=== PATIENT | male | born 1960 | race Caucasian/White ===

== ENCOUNTER 2023-07-09 22:14 | Inpatient (IN) | payer OTHER, SELFPAY ==
[2023-07-09 19:10] VITALS: BP 125/73
--- NOTE | 2023-07-09 19:49 | ED.GENMED ---
History of Present Illness
General
Chief Complaint: Abnormal Lab Value
Source: patient
Exam Limitations: none
Time Seen by Provider: 07/09/23 19:29
Travel History
Have you had any contact with someone who has COVID-19?: No
Do you have any symptoms of coronavirus? Fever > 100 degrees, chills, cough, shortness of breath, sore throat, loss of taste or smell, muscle aches, or headache?: No
History of Present Illness
History of Present Illness:
This is a 62 year old male that comes in with c/o fever. States that he recently had an infection and was place on an antibiotic by Dr. Myers. States that he doesn't remember what the antibiotic was or what it was for. States that the night he was
given the antibiotic he had a fever and was very confused. States that he took this for 6 days and then was to have blood work and US. Statss that h had the blood work and his PCP called him and said that his Cr was 2.5. States that this was 2 weeks
ago. States that he was feeling better. Then yesterday he started to feel dizzy when he would stand up and felt like he was going to fall. States that he was also cold and he had a fever. States that his urine was dark. States that he has had
diarrhea, headache yesterday and today and the loopiness. Denies any chills, chest pain, SOB, abd pain, nausea, vomiting, urinary burning.
Past History
Past History
ED Past Medical History: Arrthythmia (Atrial fib), HTN, Renal failure (with Kidney Transplant 2014, Never had dialysis) and Other (Kidney disease)
ED Past Surgical History: Cardiac (blation), Orthopedic (Left ankle surgery X 2, Jaw surgery) and Other (kidney transplant)
Social History
Tobacco: Non-smoker
Alcohol: Occasional
Personal:
Living: with family
Review of Systems
Review of Systems
All Other Systems: ROS reviewed and negative except as documented in HPI and ROS
Constitutional: Reports fever; Denies chills
EENT: Reports no symptoms
Respiratory: Reports no symptoms; Denies cough or trouble breathing
Cardiac: Denies chest pain
ABD/GI: Reports diarrhea; Denies abdominal pain, nausea or vomiting
: Reports no symptoms; Denies dysuria, frequency or urgency
Musculoskeletal: Reports no symptoms
Skin: Reports no symptoms
Neurological: Reports dizzy and headache
Psychiatric: Reports no symptoms
Phy Exam
General Physical Exam
General Presentation: no apparent distress
General age: appears stated age
General Skin: warm and dry
General Habitus: normal
General Mental: alert
General Hydration: dry mucous membranes
ENT Exam
ENT Exam: TM's normal, pharynx normal and neck supple
Eye Exam
Eye Exam: EOMI
Cardiovascular Exam
Cardiovascular Exam: regular rate/rhythm, no murmur and normal peripheral pulses
Pulmonary Exam
Pulmonary Exam: lungs clear, no respiratory distress, no rales, chest non tender, no crackles, no rhonchi, no wheezing and no cough
Gastrointestinal Exam
Gastrointestinal Exam: normal bowel sounds, non tender, soft, no organomegaly, no pulsatile mass and non distended
Musculoskeletal Exam
Musculoskeletal Exam: full ROM and edema (Trace lower leg edema)
Skin Exam
Skin Exam: normal color, warm/dry, no rash and no petechia
Psychiatric Exam
Psychiatric Exam: normal mood/affect
Course
Orders/Labs/Results
Orders:
Orders
07/09/23 19:48
0.9% Sodium Chloride 1000 ml [Nss] 1,000 ml IV BOLUS
Acetaminophen [Tylenol] 1,000 mg PO NOW STA
07/09/23 19:59
Complete Blood Count/With Diff Urgent
Comprehensive Metabolic Panel Urgent
Lactic Acid Q4H
Comment: CANCEL 2nd LACTIC ACID IF 1st LACTIC ACID IS LESS THAN 2
Blood Culture Q30M
WING Source: Blood/Venous
Specimen Description:
Blood Culture Q30M
WING Source: Blood/Venous
Specimen Description:
07/09/23 20:06
Urinalysis Reflex To Culture Urgent
Date Specimen was Collected: 07/09/23
Time Specimen was Collected: 19:52
Urine Microscopic Reflex Cult Urgent
Urine Culture Urgent
WING Source: U
Specimen Description:
Date Specimen was Collected: 07/09/23
Time Specimen was Collected: 19:52
07/09/23 21:06
CefTRIAXone [Rocephin] 1,000 mg IV NOW STA
07/10/23 00:00
Lactic Acid Q4H
Comment: CANCEL 2nd LACTIC ACID IF 1st LACTIC ACID IS LESS THAN 2
Abnormal Lab Results
07/09/23 07/09/23
19:59 20:06
RBC 3.94 L 10^6/uL
(4.70-6.10)
Hgb 11.7 L g/dL
(13.0-18.0)
Hct 34.0 L %
(39.0-52.0)
RDW 14.6 H %
(11.5-14.5)
MPV 11.1 H fL
(7.4-10.4)
Absolute Neuts (auto) 8.4 H 10^3/uL
(1.4-6.5)
Absolute Lymphs (auto) 0.7 L 10^3/uL
(1.2-3.4)
Absolute Monos (auto) 1.4 H 10^3/uL
(0.1-0.6)
Neutrophils % 79.5 H %
(42.2-75.2)
Lymphocytes % 6.4 L %
(20.5-51.1)
Monocytes % 13.4 H %
(1.7-9.3)
Sodium 132 L mmol/L
(135-145)
Carbon Dioxide 20 L mmol/L
(22-30)
BUN 42 H mg/dl
(9-20)
Creatinine 2.5 H mg/dL
(0.7-1.3)
Glucose 114 H mg/dl
(70-99)
Urine Ketones Trace A
(Negative)
Ur Occult Blood Reflex 2+ A
(Negative)
Urine Nitrite (Reflex) Positive A
(Negative)
Urine Bilirubin 1+ A
(Negative)
Leukocyte Esterase Rfl 2+ A
(Negative)
Urine RBC 7-10 A /HPF
(0-2)
Urine WBC (Reflex) 60-70 A /HPF
(0-5)
Urine Bacteria (Reflex) Many A
(Negative)
07/09/23 19:59
07/09/23 19:59
H/H slightly low. Sodium slightly low. Carbon dioxide low. Acute renal failure, GLucose nonfasting. Dodson positive for infection. Lactic acid normal at 0.8
Vital Signs
Initial and Last Documented VS:
Initial Vital Signs
Temp Pulse Resp BP Pulse Ox
99.3 F 96 20 125/73 98
07/09/23 19:10 07/09/23 19:10 07/09/23 19:10 07/09/23 19:10 07/09/23 19:10
Last Documented Vital Signs
Temp Pulse Resp BP Pulse Ox
99.3 F 92 16 128/76 97
07/09/23 19:10 07/09/23 20:15 07/09/23 20:15 07/09/23 20:06 07/09/23 20:15
MDM/Problems Addressed
Differential Diagnosis Includes:
Renal failure, UTI,
MDM/Problems Addressed:
This is a 62 year old male that comes in with c/o fever and dizziness. States that he started yesterday with dizziness when he would stand up. State that his urine is dark. Patient was an antibiotic a few weeks ago for 6 days. Had Repeat labs and
told that his Cr was 2.5, Patient was feeling good and thought he had a handle on it.
Will get labs, Urine, IV fluids and medicate for his fever
Back into see patient. Explained that he has a Urinary tract infection and he is in renal failure. WIll admit for IV antibiotics. Hospitalist notified.
Chronic conditions affecting care:
Kidney transplant
Acute Exacerbation and/or Progression of Chronic Illness:
UTI, Kidney transplant
*Pulse Oximetry
Patient hypoxic: no
*EKG
Interpreted by ED Provider?: NA
Rate: EKG- N/A
*Critical Care Note
Total Time (30-74mins, 75-104mins- exclusive of procedures): Not Applicable
ED Attending Note
-
Portions of this chart may have been created with voice recognition software.� Occasional wrong word or��sound alike� substitutions may have occurred due to the inherent limitations of voice recognition software.
Discharge Plan
Departure
Patient Disposition: Admit
Date of Disposition: 07/09/23
Time of Disposition: 21:14
Admit to: Med/Surg
Presentation/result/management discussed w/ accepting MD/DO: Hospitalist
Patient with high blood pressure during this ER visit?: No
Condition: Good
Covid-19: Not Applicable
Discharge Problem:
Urinary tract infection, Acute renal failure
Prescriptions:
No Action
tacrolimus 1 MG capsule
1 mg PO BID
Patient Comments:
10/20/2021: TAKEN W/ 0.5MG = 1.5MG
tacrolimus 0.5 MG capsule
0.5 mg PO BID
mycophenolate sodium 180 MG tablet,delayed release (DR/EC)
540 mg PO BID
labetalol 200 MG tablet
400 mg PO BID Qty: 360 0RF
Xarelto 20 MG tablet
20 mg PO QPM Qty: 90 0RF
furosemide [Lasix] 20 MG tablet
40 mg PO DAILY
pantoprazole [pantoprazole] 40 mg tablet,delayed release (DR/EC)
40 mg PO DAILY Qty: 14 0RF
Referrals:
Leeanna Horn MD [Family Provider] -
Interventions
Interventions:
*Risk Screen - Suicide Last Done: 07/09/23 19:10
*General Assessment Last Done: 07/09/23 19:10
*Neglect/Abuse Screening Last Done: 07/09/23 19:10
ED- Fall Risk Assessment Last Done: 07/09/23 20:08
*ED COVID-19 Vaccine History Last Done: 07/09/23 20:08
[2023-07-09] MEDS: TYLENOL 1000 MG PO (20:01)
[2023-07-09] MEDS: NSS 1000 IV ×2 (20:03→23:36)
[2023-07-09 20:05] LABS: % Basophils 0.2 % (0-2); % Eosinophils 0.1 % (0-6); % Immature Granulocytes 0.4 % (0-0.5); % Lymphocytes 6.4 % (20.5-51.1); % Monocytes 13.4 % (1.7-9.3); % Neutrophils 79.5 % (42.2-75.2); Absolute Lymphocytes 0.7 10^3/uL (1.2-3.4); Absolute Monocytes 1.4 10^3/uL (0.1-0.6); Absolute Neutrophils 8.4 10^3/uL (1.4-6.5); Hemoglobin 11.7 g/dL (13.0-18.0); Mean Corp Hgb Conc. 34.4 g/dL (33.0-37.0); Mean Corpuscular Hgb 29.7 pg (27.0-31.0); Mean Corpuscular Volume 86.3 fL (80.0-94.0); Mean Platelet Volume 11.1 fL (7.4-10.4); Nucleated Red Blood Cells % 0 % (-); Platelet Count 178 10^3/uL (130-400); Red Blood Cell Count 3.94 10^6/uL (4.70-6.10); Red Cell Dist. Width 14.6 % (11.5-14.5); White Blood Cell Count 10.6 10^3/uL (4.8-10.8)
[2023-07-09 20:06] VITALS: BP 128/76
[2023-07-09 20:08] VITALS: BMI 25.8
[2023-07-09 20:17] LABS: Lactic Acid 0.8 mmol/L (0.7-2.0)
[2023-07-09 20:21] LABS: Urine Albumin Trace (Neg - Trace); Urine Bilirubin 1+ (Negative); Urine Character Slightly Cloudy (Clear); Urine Color Yellow; Urine Glucose Negative (Negative); Urine Ketone Trace (Negative); Urine Leukocyte 2+ (Negative); Urine Nitrite Positive (Negative); Urine Occult Blood 2+ (Negative); Urine Specific Gravity 1.015 (<1.030); Urine Urobilinogen 1+ (Neg - 1+)
[2023-07-09 20:55] LABS: Urine White Cell 60-70 /HPF (0-5)
[2023-07-09 20:56] LABS: Urine Bacteria Many (Negative)
[2023-07-09 21:00] VITALS: BP 112/61
[2023-07-09 21:04] LABS: ALT (SGPT) 18 U/L (0-50); AST (SGOT) 21 U/L (17-59); Albumin 3.9 g/dl (3.5-5.0); Alkaline Phosphatase 97 U/L (38-126); Blood Urea Nitrogen 42 mg/dl (9-20); Calcium 8.9 mg/dl (8.4-10.2); Carbon Dioxide 20 mmol/L (22-30); Chloride 98 mmol/L (98-107); Estimated Creatinine Clearance 40 ml/min; Glucose 114 mg/dl (70-99); Potassium 3.9 mmol/L (3.5-5.1); Sodium 132 mmol/L (135-145); Total Protein 6.5 g/dl (6.3-8.2); eGFR 28.16
[2023-07-09] MEDS: ROCEPHIN 1000 MG IV (21:13)
[2023-07-09 21:15] LABS: Total Bilirubin 3.2 mg/dl (0.2-1.3)
--- NOTE | 2023-07-09 21:15 | HPS.HSE ---
Addendum entered and electronically signed by Hong Moore MD 07/09/23 21:51:
Hyponatremia, mild, trend Na with IVFs
Allergies
Allergy/AdvReac Type Severity Reaction Status Date / Time
amoxicillin Allergy unsure Verified 07/09/23 19:10
latex Allergy unsure Verified 07/09/23 19:10
Home Medications
Source: Pt using pics of medication bottles on his phone
mycophenolate sodium 180 mg tablet,delayed release 540 mg PO BID Transplant
tacrolimus 1.5mg PO QAM and 1mg PO QPM
labetalol 200 mg tablet 400 mg PO BID
rivaroxaban 20 mg tablet (Xarelto) 20 mg PO QPM
furosemide 20 mg tablet (Lasix) 40 mg PO Q48H
pantoprazole 40 mg tablet,delayed release 40 mg PO DAILY
Original Note:
Family Physician
-
Family Physician: Leeanna Horn MD
Chief Complaint
-
Elevated creatinine, fever, lightheadedness
History of Present Illness
62 y/o M with PMHx
Essential hypertension
Paroxysmal Afib
h/o renal transplant due to polycystic kidney disease in 2014
HFpEF
Who presents with chief complaint of elevated creatinine, fever, lightheadedness. Patient was on an antibiotic for 6 days starting June 2023. He does not recall which antibiotic it was. This was for urinary tract infection. Yesterday evening
the patient felt lightheaded and had a headache. Today, he went to the house of Dr. Raiza Cortez and was found to have a fever of 104 �F and was orthostatic. He also already had the knowledge that his creatinine was elevated from baseline at 2.5.
Dr. Myers had ordered a renal U/S for him. Denies chest pain or shortness of breath. He does report that when he became lightheaded he felt his heart was racing and was concerned he was in atrial fibrillation. Denies neck stiffness, nausea,
vomiting, diarrhea, abdominal pain, dysuria, cloudy urine. He does report this afternoon his urine became darker when it was clear earlier. Denies any other acute complaints
Medical History
Past Medical History
Past Medical History: Reports Other (as per HPI)
Past Surgical History: Reports Other (h/o renal transplant)
Social History
Tobacco: Non-smoker
Alcohol: Occasional
Drug: None
Family History
Family History: Not pertinent
Allergies / Home Medications
Allergies reflects when Allergies were last updated in [employer].
Home Medications with original date entered in [employer]
Allergy/Medication List:
Gen: NAD, AAOx3.
Eyes: EOMI, PERRLA, no scleral icterus.
Neck: supple.
CV: RRR, +S1/S2, no m/r/g.
Resp: CTAB, no rales, wheezes, or rhonchi.
Abd: +BS, soft, NT, ND
Skin: No rashes.
Neuro: CN 2-12 intact, non-focal.
Psych: Normal mood and affect.
Review of Systems
-
History Source: Patient
A 12 point ROS was completed and negative except as noted: Yes
Physical Exam
Vital Signs
Vital Signs
Temp Pulse Resp BP Pulse Ox
99.3 F 92 16 128/76 97
07/09/23 19:10 07/09/23 20:15 07/09/23 20:15 07/09/23 20:06 07/09/23 20:15
Physical Exam
General: Other (.)
Laboratory Results
-
07/09/23 19:59
07/09/23 19:59
Laboratory Results
Lactic Acid 0.8 mmol/L (0.7-2.0) 07/09/23 19:59
Total Bilirubin 3.2 mg/dl (0.2-1.3) H 07/09/23 19:59
AST 21 U/L (17-59) 07/09/23 19:59
ALT 18 U/L (0-50) 07/09/23 19:59
Alkaline Phosphatase 97 U/L (38-126) 07/09/23 19:59
Impression/Plan
-
Gen: NAD, AAOx3.
Eyes: EOMI, PERRLA, no scleral icterus.
Neck: supple.
CV: RRR, +S1/S2, no m/r/g.
Resp: CTAB, no rales, wheezes, or rhonchi.
Abd: +BS, soft, NT, ND
Skin: No rashes. Trace LE edema.
Neuro: CN 2-12 intact, non-focal.
Psych: Normal mood and affect.
KASHIF on CKD3a:
-with acute metabolic acidosis (borderline AG=14) likely due to KASHIF
-hold lasix
-IVFs, trend Cr
-check renal U/S
-c/s renal
Acute UTI:
-was on PO abx DESK REPORTER, pt does not know which one (started 06/16/23 for 6 days)
-Pt given Rocephin in ER. Will use Meropenem for now pending culture data, fever 104 F just prior to admission, immunocompromise, etc.
-follow UCx/BCxs
-c/s ID as pt is immunocompromised
Other problems:
Essential hypertension: Continue labetalol
Paroxysmal Afib: Continue Xarelto
h/o renal transplant due to polycystic kidney disease in 2015: Cont Cellcept/Tacrolimus. Check Tacrolimus.
HFpEF: Hold Lasix with KASHIF
Pt's updated over the phone.
FULL/Xarelto
[2023-07-09 22:00] VITALS: BP 108/54
[2023-07-09 22:58] VITALS: BMI 24.8
[2023-07-09] MEDS: FLUSH (NSS) 1 FLUSH IV (23:37)
[2023-07-09 23:40] VITALS: BP 112/64
--- NOTE | 2023-07-09 23:44 | PTCARENOTE ---
Pt. admitted from E.D., AAO x 3, vs stable, 99% RA, pt. ambulated from stretcher to bed, call sandoval within reach.
[2023-07-10] MEDS: STERILE WATER FOR INJECTION 20 ML IV ×2 (00:26→11:42)
[2023-07-10] MEDS: MERREM 1000 MG IV ×2 (00:27→11:42)
[2023-07-10 07:35] VITALS: BP 132/75
[2023-07-10] MEDS: NSS 1000 IV ×3 (07:43→22:22)
[2023-07-10] MEDS: PROTONIX 40 MG PO (07:44)
[2023-07-10] MEDS: MYFORTIC DELAYED REL. 540 MG PO ×2 (07:44→20:22)
[2023-07-10] MEDS: TRANDATE 400 MG PO ×2 (07:46→20:22)
[2023-07-10] MEDS: PROGRAF 1.5 MG PO (07:47)
[2023-07-10 09:18] LABS: Hematocrit 32.8 % (39.0-52.0); Mean Corp Hgb Conc. 33.5 g/dL (33.0-37.0); Mean Corpuscular Hgb 29.6 pg (27.0-31.0); Mean Corpuscular Volume 88.4 fL (80.0-94.0); Platelet Count 161 10^3/uL (130-400); Red Blood Cell Count 3.71 10^6/uL (4.70-6.10); Red Cell Dist. Width 14.6 % (11.5-14.5); White Blood Cell Count 10.4 10^3/uL (4.8-10.8)
[2023-07-10 09:46] LABS: Blood Urea Nitrogen 30 mg/dl (9-20); Calcium 8.3 mg/dl (8.4-10.2); Carbon Dioxide 18 mmol/L (22-30); Chloride 108 mmol/L (98-107); Estimated Creatinine Clearance 48 ml/min; Glucose 101 mg/dl (70-99); Potassium 3.9 mmol/L (3.5-5.1); Sodium 133 mmol/L (135-145); eGFR 34.72
--- NOTE | 2023-07-10 15:10 | W.PN.HOSP.TC ---
Today's Communication/Plan
-
USS
Await Cx
AB
ID and renal eval
IVF
Assessment / Plan
Assessment / Plan
62-year-old male with history of renal transplant for polycystic kidney disease in 2015 presents with elevated creatinine, lightheadedness. He was on antibiotics for the past 6 days for UTI. Night prior to admission he felt lightheaded and had a
headache. Saw Dr. Cortez with a fever 104. His creatinine was also elevated to 2.5 and had ordered an ultrasound. Urine looked darker. He says ordered him AB. Denies any abdominal pain
Awake alert oriented x 3
Cardiovascular system S1-S2 appreciated
Chest clear to auscultation
No right lower quadrant pain or tenderness
No pedal edema
#Acute kidney injury on CKD stage III
History of renal transplant due to polycystic kidney disease in 2014 at [facility]-living unrelated donor
History of nephrectomy
Hold Lasix, IV fluids
Follow creatinine-Down to 2.1 from 2.5
Ultrasound of the kidneys
Continue mycophenolate 540 p.o. twice daily, tacrolimus 1.5 mg p.o. am and 1 mg in the evening
Check tacrolimus level
Nephrology evaluation
# UTI
Patient was on an antibiotic prior to admission he does not remember the name
Ceftriaxone given in the ER.
Meropenem started
ID consulted as patient is immunocompromise
Follow-up on blood and urine cultures
# Mild hyponatremia
# Heart failure with consult ejection fraction-chronic
Hold Lasix with KASHIF
# Hypertension-on labetalol as outpatient
# Paroxysmal atrial fibrillation-on Xarelto and labetalol history of ablation
# DVT prophylaxis-Xarelto
# Full code
Verified meds with family
Xarelto 20 mg daily HS
Labetalol 400 twice a day
Furosemide 40 mg daily
Tacrolimus 1.5 mg in the morning and 1 mg in the evening
Mycophenolate 540 Mg BID
Discussed with family at bedside
Anticipated Discharge: > 48 hours
Subjective/Interval History
-
Date of Service: July 10, 2023
Objective Data
-
Labs:
Laboratory Results
07/10/23
07:41
WBC 10.4
Hgb 11.0 L
Hct 32.8 L
Plt Count 161
Sodium 133 L
Potassium 3.9
Chloride 108 H
Carbon Dioxide 18 L
BUN 30 H
Creatinine 2.1 H
Glucose 101 H
Calcium 8.3 L
Vital Signs:
Vital Signs
Temp Pulse Resp BP Pulse Ox
98.3 F 82 16 137/75 97
07/10/23 07:35 07/10/23 07:46 07/10/23 07:35 07/10/23 07:46 07/10/23 07:35
I&O
07/09/23 07/10/23 07/11/23
06:59 06:59 06:59
Intake Total 1040 / 1040
Balance 1040 / 1040
--- NOTE | 2023-07-10 15:12 | W.CON.NEPH ---
Consultation
-
Date/Time Consultation Requested: 07/10/2023 9 AM
Date/Time Consultation Performed: 07/10/2023 3 PM
Requesting Provider: Dr. Moore
Performing Provider: Dr. Stern
Reason for Consultation: Acute kidney injury, living unrelated renal transplant
Medical History
-
Chief Complaint: Acute kidney injury, renal transplant
History of Present Illness:
This is a 62-year-old gentleman who is followed by Dr. Myers in our office for his living unrelated renal transplant from April 2015 from his . He has baseline creatinine of 1.6. He is maintained on a dual regimen of tacrolimus and
Myfortic. He has hypertension on mild therapy regimen as well as paroxysmal atrial fibrillation on Xarelto therapy. Recently, he had developed symptoms which he believed may have been a urinary tract infection. Which he believes may have been a
urinary tract infection. He was given a course of Levaquin though this did not seem to resolve his issue. Given his persistent symptoms he did come to the emergency room and was admitted because of orthostasis and elevated creatinine. We are
asked to assist with management of his renal transplant
Past Medical History
Living unrelated renal transplant April 2015
Left upper arm AV fistula
Diverticulitis
Secondary hyperparathyroidism
ADPKD with bilateral nephrectomy
Hemorrhoids
Jaw and left ankle fracture
Heart failure preserved ejection fraction paroxysmal atrial fibrillation
With ablation
Social History
No tobacco no alcohol
Family History
Significant for PKD, diabetes, heart failure
Allergies / Home Medications
Allergy/AdvReac Type Severity Reaction Status Date / Time
amoxicillin Allergy unsure Verified 07/09/23 19:10
latex Allergy unsure Verified 07/09/23 19:10
Medication Instructions Recorded Confirmed Type
mycophenolate sodium 180 mg 540 mg PO BID Transplant 10/20/21 12/10/21 History
tablet,delayed release
tacrolimus 0.5 mg capsule, 0.5 mg PO BID Transplant 10/20/21 12/10/21 History
immediate-release
tacrolimus 1 mg capsule, 1 mg PO BID Transplant 10/20/21 12/10/21 History
immediate-release
labetalol 200 mg tablet 400 mg PO BID #360 tabs 10/24/21 12/10/21 Rx
rivaroxaban 20 mg tablet (Xarelto) 20 mg PO QPM #90 tabs 10/24/21 12/10/21 Rx
furosemide 20 mg tablet (Lasix) 40 mg PO DAILY 12/01/21 12/10/21 History
pantoprazole 40 mg tablet,delayed 40 mg PO DAILY #14 tabs 12/10/21 Rx
release
Review of Systems
-
No current lightheadedness while supine. No chest pain or shortness of breath. Currently no fever. The remainder of the complete review of systems was negative
Physical Exam
Vital Signs
Vital Signs
Temp Pulse Resp BP Pulse Ox
98.3 F 82 16 137/75 97
07/10/23 07:35 07/10/23 07:46 07/10/23 07:35 07/10/23 07:46 07/10/23 07:35
Lab Results
WBC 10.4 10^3/uL (4.8-10.8) 07/10/23 07:41
RBC 3.71 10^6/uL (4.70-6.10) L 07/10/23 07:41
Hgb 11.0 g/dL (13.0-18.0) L 07/10/23 07:41
Hct 32.8 % (39.0-52.0) L 07/10/23 07:41
Plt Count 161 10^3/uL (130-400) 07/10/23 07:41
Sodium 133 mmol/L (135-145) L 07/10/23 07:41
Potassium 3.9 mmol/L (3.5-5.1) 07/10/23 07:41
Chloride 108 mmol/L (98-107) H 07/10/23 07:41
Carbon Dioxide 18 mmol/L (22-30) L 07/10/23 07:41
BUN 30 mg/dl (9-20) H 07/10/23 07:41
Creatinine 2.1 mg/dL (0.7-1.3) H 07/10/23 07:41
eGFR 34.72 07/10/23 07:41
Glucose 101 mg/dl (70-99) H 07/10/23 07:41
Calcium 8.3 mg/dl (8.4-10.2) L 07/10/23 07:41
Albumin 3.9 g/dl (3.5-5.0) 07/09/23 19:59
Physical Exam
General: AOx3
HEENT: PERRL, EOMI, Ear/Nose Intact, Hearing Normal, Oropharynx Clear/Moist, Trachea Midline and No Thyromegaly
Respiratory: Clear
Cardiac: Regular Rate/Rhythm
Abdomen: Soft, Nontender, Nondistended, Normal Bowel Sounds and No Hepatosplenomegaly
Musculoskeletal: Edema
Skin: No Rash and Normal Turgor
Psych: Mood/afflect pleasant and Insight/judgement good
Assessment/Plan
-
Assessment
Living unrelated renal transplant 2014
CKD 3, baseline creatinine 1.6
ADPKD bilateral nephrectomy
Hypertension
Urinary tract infection
Plan
Continue IV fluids
Follow BMP
Check trough tacrolimus level in the morning
Broad-spectrum antibiotics intravenous
Urine cultures pending for narrowing of antibiotics
Discussed with patient and family at bedside
Data Reviewed
-
Labs: Labs Reviewed by me
Old Records: Reviewed (Creatinine June 2023 outpatient 2.3)
--- NOTE | 2023-07-10 15:17 | CON.ID ---
Consultation
-
Date/Time Consultation Requested: 07/09/2023, 2258
Date/Time Consultation Performed: 07/10/2023, 1520
Requesting Provider: Dr. Hong Moore
Performing Provider: Dr. Echo Mcwilliams
Reason for Consultation: UTI
Chief Complaint / Past History
Chief Complaint
Dizziness, weakness, fever
History of Present Illness
History obtained from patient and from his at bedside. He is a 62 year old male with PCKD s/p renal transplant 2014 on tacrolimus/mycophenylate, Afib who has nto been feeling well since x 3 weeks with malaise, weakness, dizziness. On 06/20/23
His auctioneer automobile prescribed levofloxacin 500mg po x 1 then 250mg x 6 days for presumed UTI. 06/21 UA 3+LE, >60wbc, UCX NO growth. Initially he improved. However, dizziness has gotten worse the past few days. He reports T=104 with chills. No pain
over transplant kidney. No dysuria. No urgency. Urinating more frequently since being in hospital. No N/V/Abd pain. Had diarrhea at home, now resolving. No cough. No URI sxs. No ill contacts.
Past History
Additional Past Medical History:
PCKD s/p renal transplant 2014, on tacrolimus, mycophenolate
Bilateral nephrectomy
HTN
Afib
HFpEF
Mandible ORIF
left ankle ORIF x 2
Allergy History:
amoxicillin Allergy (Verified 07/09/23 19:10)
unsure
latex Allergy (Verified 07/09/23 19:10)
unsure
Medications Reviewed: Yes
Current Antibiotics:
Meropenem
Social History
Tobacco: Non-Smoker
Alcohol: Occasional
Drug: None
Personal:
Employment: Employed ([employer])
Family History
Family History: Not Pertinent
Review of Systems
Review of Systems
General: Fever, Chills and Change in Appetite
HEENT: Negative Sinus Problems, Headache or Pharyngitis
Cardiovascular: Negative Chest Pain
Respiratory: Negative Dyspnea or Cough
Gasteroenterology: Negative Nausea or Vomiting
Genital / Urological: Negative Dysuria
Endocrine: Weakness
Neurological: Negative Dizziness
All systems: All other systems were reviewed and were negative
Vital Signs
Temp Pulse Resp BP Pulse Ox
98.3 F 82 16 137/75 97
07/10/23 07:35 07/10/23 07:46 07/10/23 07:35 07/10/23 07:46 07/10/23 07:35
Physical Exam
Physical Exam
Constitutional: No Acute Distress and Comfortable
Eyes: No Conjunctival Hemorrhage and Sclera Anicteric
Cardiovascular: Regular Rate and S1/S2
Pulmonary: Clear
Gastrointestinal: Soft, Non Tender, Non Distended and Normal Bowel Sounds
Genito-Urinary: Other (nontender over RLQ renal transplant kidney)
Extremities: Negative Edema
Neurological: AO x 3
Lab / Diagnostic Study Results
07/10/23 07:41
07/10/23 07:41
Abs Immat Gran (auto) 0.0 10^3/uL (0-0.05) 07/09/23 19:59
Absolute Neuts (auto) 8.4 10^3/uL (1.4-6.5) H 07/09/23 19:59
Absolute Lymphs (auto) 0.7 10^3/uL (1.2-3.4) L 07/09/23 19:59
Absolute Monos (auto) 1.4 10^3/uL (0.1-0.6) H 07/09/23 19:59
Absolute Basos (auto) 0.0 10^3/uL (0-0.2) 07/09/23 19:59
Immature Gran % 0.4 % (0-0.5) 07/09/23 19:59
Neutrophils % 79.5 % (42.2-75.2) H 07/09/23 19:59
Lymphocytes % 6.4 % (20.5-51.1) L 07/09/23 19:59
Monocytes % 13.4 % (1.7-9.3) H 07/09/23 19:59
Eosinophils % 0.1 % (0-6) 07/09/23 19:59
Basophils % 0.2 % (0-2) 07/09/23 19:59
Lactic Acid Cancelled 07/10/23 00:00
Ur Squamous Epith Cells 6-10 /LPF (Few) 07/09/23 20:06
Microbiology Results
Micro:
07/09/23 20:06 Urine Culture - Pending
Urine
07/09/23 19:59 Blood Culture - Pending
Blood/Venous
07/09/23 19:59 Blood Culture - Pending
Blood/Venous
Assessment / Plan
# Dizziness
# Reported fever
# KASHIF on CKD
# Recent levofloxacin x 7d (Ucx neg)
# Renal transplant on tacrolimus, mycophenolate
- Follow blood cx,Ucx.
-Narrow meropenem to cefepime cx data.
- Follow temps, wbc.
[2023-07-10 15:35] VITALS: BP 134/85
[2023-07-10] MEDS: XARELTO 20 MG PO (17:02)
[2023-07-10] MEDS: PROGRAF 1 MG PO (17:02)
[2023-07-10 20:21] VITALS: BP 136/84
[2023-07-10 23:26] VITALS: BP 156/85
[2023-07-11] MEDS: MAXIPIME 1000 MG IV ×2 (00:46→14:04)
[2023-07-11] MEDS: STERILE WATER FOR INJECTION 10 ML IV ×2 (02:09→14:04)
[2023-07-11 05:52] LABS: Hematocrit 33.2 % (39.0-52.0); Hemoglobin 11.2 g/dL (13.0-18.0); Mean Corp Hgb Conc. 33.7 g/dL (33.0-37.0); Mean Corpuscular Hgb 29.9 pg (27.0-31.0); Mean Corpuscular Volume 88.8 fL (80.0-94.0); Platelet Count 152 10^3/uL (130-400); Red Blood Cell Count 3.74 10^6/uL (4.70-6.10); Red Cell Dist. Width 14.6 % (11.5-14.5)
[2023-07-11] MEDS: NSS 1000 IV (06:11)
--- NOTE | 2023-07-11 06:23 | PTCARENOTE ---
IV normal saline renewed at 125 mL/hr by GELACIO Chung overnight.
[2023-07-11 06:40] LABS: Blood Urea Nitrogen 22 mg/dl (9-20); Calcium 8.3 mg/dl (8.4-10.2); Carbon Dioxide 17 mmol/L (22-30); Chloride 112 mmol/L (98-107); Estimated Creatinine Clearance 58 ml/min; Glucose 110 mg/dl (70-99); Potassium 4.2 mmol/L (3.5-5.1); Sodium 137 mmol/L (135-145); eGFR 44.46
--- NOTE | 2023-07-11 06:51 | W.PN.HOSP.TC ---
Today's Communication/Plan
-
cont abx
follow up renal US results
monitor renal function off IVF
daily weights I/O
follow culture sensitivities
Assessment / Plan
Assessment / Plan
Physical exam
General: No acute distress appears comfortable at this time
Cardiovascular system S1-S2 no murmurs rubs gallops
Chest: clear to auscultation no crackles wheezes stridor
Abd: soft nontender bowel sounds present
Ext: No cyanosis edema
Neuro: AOx3
62-year-old male with history of renal transplant for polycystic kidney disease in 2015 presents with elevated creatinine, lightheadedness. He was on antibiotics for the past 6 days for UTI. Night prior to admission he felt lightheaded and had a
headache. Saw Dr. Cortez with a fever 104. His creatinine was also elevated to 2.5 and had ordered an ultrasound. Urine looked darker. He says ordered him AB. Denies any abdominal pain
#Acute kidney injury on CKD stage III
History of renal transplant due to polycystic kidney disease in 2015 at [facility]-living unrelated donor
History of nephrectomy
Hold Lasix, Cr improving, IV fluids completed
Ultrasound of the kidneys results pending
Continue mycophenolate 540 p.o. twice daily, tacrolimus 1.5 mg p.o. am and 1 mg in the evening
Tacrolimus level pending
Nephrology eval appreciated
# UTI
Patient was on an antibiotic prior to admission he does not remember the name
Ceftriaxone given in the ER.
Urine culture positive for E. coli sensitivities pending
ID consult appreciated cont Cefipime pending sensitivities
# Mild hyponatremia
# Heart failure preserved ejection fraction-chronic
Lasix held with KASHIF
daily weights I/O
# Hypertension-on labetalol as outpatient
# Paroxysmal atrial fibrillation-on Xarelto and labetalol history of ablation
# DVT prophylaxis-Xarelto
# Full code
Verified meds with family
Xarelto 20 mg daily HS
Labetalol 400 twice a day
Furosemide 40 mg daily
Tacrolimus 1.5 mg in the morning and 1 mg in the evening
Mycophenolate 540 Mg BID
Discussed with patient and his Le
I spent a total of 55 minutes with the patient or on the floor. More than 50% of this time involved counseling and coordination of care.
Anticipated Discharge: 24 - 48 hours
Subjective/Interval History
-
Date of Service: July 11, 2023
No acute distress appears comfortable at this time.
Objective Data
-
Labs:
Laboratory Results
07/11/23
05:39
WBC 6.0
Hgb 11.2 L
Hct 33.2 L
Plt Count 152
Sodium 137
Potassium 4.2
Chloride 112 H
Carbon Dioxide 17 L
BUN 22 H
Creatinine 1.7 H
Glucose 110 H
Calcium 8.3 L
Vital Signs:
Vital Signs
Temp Pulse Resp BP Pulse Ox
99.4 F 86 20 156/85 97
07/10/23 23:26 07/10/23 23:26 07/10/23 23:26 07/10/23 23:26 07/10/23 23:26
I&O
07/09/23 07/10/23 07/11/23
06:59 06:59 06:59
Intake Total 1040 / 1040 2200 / 2200
Balance 1040 / 1040 2200 / 2200
[2023-07-11 08:00] VITALS: BP 112/84
[2023-07-11] MEDS: PROGRAF 1.5 MG PO (08:15)
[2023-07-11] MEDS: TRANDATE 400 MG PO ×2 (08:18→20:35)
[2023-07-11] MEDS: MYFORTIC DELAYED REL. 540 MG PO ×2 (08:18→20:35)
--- NOTE | 2023-07-11 13:59 | W.PN.ID1 ---
Date of Service
Date of Service: July 11, 2023
Today's Communication
Continue cefepime pending susceptibility data.
Assessment / Plan
# E. coli UTI
# Reported fever
# KASHIF on CKD, improving
# Renal transplant on tacrolimus, mycophenolate
- blood cx negative
-Ucx E. coli
- Continue cefepime pending susceptibility data.
#Additional Past Medical History:
PCKD s/p renal transplant 2014, on tacrolimus, mycophenolate
Bilateral nephrectomy
HTN
Afib
HFpEF
Mandible ORIF
left ankle ORIF x 2
Chief Complaint
-: UTI
Subjective / Review of Systems
Feels improved. Dizziness resolving. More energy.
Vital Signs / Physical Exam
Vital Signs
Vital Signs
Temp Pulse Resp BP Pulse Ox
97.5 F 77 16 112/84 97
07/11/23 08:00 07/11/23 08:00 07/11/23 08:00 07/11/23 08:00 07/11/23 08:00
Physical Exam
Constitutional: No Acute Distress and Comfortable
Gastrointestinal: Soft, Non Tender and Non Distended
Neurological: AO x 3
Objective Data
Lab Data
Lab Results
07/11/23 05:39
07/11/23 05:39
Estimated Creat Clear 58 ml/min 07/11/23 05:39
Lactic Acid Cancelled 07/10/23 00:00
Total Bilirubin 3.2 mg/dl (0.2-1.3) H 07/09/23 19:59
AST 21 U/L (17-59) 07/09/23 19:59
ALT 18 U/L (0-50) 07/09/23 19:59
Alkaline Phosphatase 97 U/L (38-126) 07/09/23 19:59
Most recent labs reviewed.
Micro Results:
07/09/23 20:06 Urine Culture - Preliminary
Urine Escherichia coli
07/09/23 19:59 Blood Culture - Preliminary
Blood/Venous No Growth in 24 hours- Final report to follow
07/09/23 19:59 Blood Culture - Preliminary
Blood/Venous No Growth in 24 hours- Final report to follow
--- NOTE | 2023-07-11 14:02 | CM ---
nurse unit manager reviewed patient's chart and met with patient in room, patient lives in a multilevel home, patient is independent with adl's and ambulation no dme, patient drives, patient has a prescription plan and patient uses [facility] pharmacy.
PCP: Dr. Horn
Plan; Home when stable no needs.
[2023-07-11] MEDS: NSS IV (16:14)
--- NOTE | 2023-07-11 18:05 | W.PN.NEPH.PH ---
Today's Communication / Plan
-
- off fluids
Assessment/Plan
-
Assessment
Living unrelated renal transplant 2014
CKD 3, baseline creatinine 1.6
ADPKD bilateral nephrectomy
Hypertension
Urinary tract infection
Plan
IVF stopped today
Cr improved to 1.7, bl 1.6
Follow BMP
tac level pending
Broad-spectrum antibiotics intravenous, appreciate ID recommendations
E coli UTI noted, pending sensitivities
transplant ultrasound completed today, pending report
Discussed with patient and family at bedside
-
-
Date of Service: July 11, 2023
CC / HPI / ROS
-
Chief Complaint:
KASHIF in renal txp
History of Present Illness:
KASHIF improving from 2.5 to 1.7 with fluids
UTI tx ongoing
Review of Systems:
lightheadedness and dizziness improved
Labs
-
Labs:
WBC 6.0 10^3/uL (4.8-10.8) 07/11/23 05:39
RBC 3.74 10^6/uL (4.70-6.10) L 07/11/23 05:39
Hgb 11.2 g/dL (13.0-18.0) L 07/11/23 05:39
Hct 33.2 % (39.0-52.0) L 07/11/23 05:39
Plt Count 152 10^3/uL (130-400) 07/11/23 05:39
Sodium 137 mmol/L (135-145) 07/11/23 05:39
Potassium 4.2 mmol/L (3.5-5.1) 07/11/23 05:39
Chloride 112 mmol/L (98-107) H 07/11/23 05:39
Carbon Dioxide 17 mmol/L (22-30) L 07/11/23 05:39
BUN 22 mg/dl (9-20) H 07/11/23 05:39
Creatinine 1.7 mg/dL (0.7-1.3) H 07/11/23 05:39
eGFR 44.46 07/11/23 05:39
Glucose 110 mg/dl (70-99) H 07/11/23 05:39
Calcium 8.3 mg/dl (8.4-10.2) L 07/11/23 05:39
Albumin 3.9 g/dl (3.5-5.0) 07/09/23 19:59
Physical Exam
-
Vital Signs:
Vital Signs
Temp Pulse Resp BP Pulse Ox
97.5 F 77 16 112/84 97
07/11/23 08:00 07/11/23 08:00 07/11/23 08:00 07/11/23 08:00 07/11/23 08:00
Cardiovascular:: Regular rate and rhythm
Respiratory:: Bilateral: CTA
Lung Excursion:: Normal
Abdomen:: Nontender and Soft
Bowel Sounds:: Normal
Extremity Edema:: None: Bilateral:
Stark Catheter: No
[2023-07-11] MEDS: PROGRAF 1 MG PO (18:24)
[2023-07-11] MEDS: XARELTO 20 MG PO (18:25)
[2023-07-11 20:32] VITALS: BP 148/93
[2023-07-11 23:06] VITALS: BP 159/105
[2023-07-12] MEDS: STERILE WATER FOR INJECTION 10 ML IV (00:07)
[2023-07-12] MEDS: MAXIPIME 1000 MG IV (00:07)
[2023-07-12 07:50] VITALS: BP 175/99
--- NOTE | 2023-07-12 07:54 | W.PN.HOSP.TC ---
Today's Communication/Plan
-
discharge
Assessment / Plan
Assessment / Plan
Physical exam
General: No acute distress appears comfortable at this time
Cardiovascular system S1-S2 no murmurs rubs gallops
Chest: clear to auscultation no crackles wheezes stridor
Abd: soft nontender bowel sounds present
Ext: No cyanosis edema
Neuro: AOx3
62-year-old male with history of renal transplant for polycystic kidney disease in 2015 presents with elevated creatinine, lightheadedness. He was on antibiotics for the past 6 days for UTI. Night prior to admission he felt lightheaded and had a
headache. Saw Dr. Cortez with a fever 104. His creatinine was also elevated to 2.5 and had ordered an ultrasound. Urine looked darker. He says ordered him AB. Denies any abdominal pain
#Acute kidney injury on CKD stage III
History of renal transplant due to polycystic kidney disease in 2014 at [facility]-living unrelated donor
History of nephrectomy
Hold Lasix, Cr improving, IV fluids completed
Ultrasound Renal Transplant appreciated no acute abn's
Continue mycophenolate 540 p.o. twice daily, tacrolimus 1.5 mg p.o. am and 1 mg in the evening
Tacrolimus level pending
Nephrology eval appreciated
# UTI
Patient was on an antibiotic prior to admission he does not remember the name
Ceftriaxone given in the ER.
Urine culture positive for E. coli pansensitive
ID consult appreciated cont Cefipime transitioned to Cefuroxime to continue through 07/21
# Mild hyponatremia
# Heart failure preserved ejection fraction-chronic
Lasix held with KASHIF, resolving/resolved, ok to resume lasix following discharge. Follow up BMP with primary care provider in 1 week recommended.
daily weights I/O
# Hypertension-on labetalol as outpatient
# Paroxysmal atrial fibrillation-on Xarelto and labetalol history of ablation
# DVT prophylaxis-Xarelto
# Full code
Verified meds with family
Xarelto 20 mg daily HS
Labetalol 400 twice a day
Furosemide 40 mg daily
Tacrolimus 1.5 mg in the morning and 1 mg in the evening
Mycophenolate 540 Mg BID
Medically stable for discharge home with outpatient follow up recommendations.
Discussed with patient
Total Time Preparing Discharge __45 minutes including examination of the patient, summary of the hospital stay, instructions for continuing care to all relevant caregivers; and preparation of discharge records, prescriptions, and referral
forms if necessary.
Anticipated Discharge: Today
Subjective/Interval History
-
Date of Service: July 12, 2023
Seen and examined at bedside in no acute distress sitting up comfortably in bed. Denies any new acute issues at this time. Reports feeling well, eager to go home.
Objective Data
-
Labs:
Laboratory Results
07/12/23
07:27
WBC Pending
Hgb Pending
Hct Pending
Plt Count Pending
Sodium Pending
Potassium Pending
Chloride Pending
Carbon Dioxide Pending
BUN Pending
Creatinine Pending
Glucose Pending
Calcium Pending
Vital Signs:
Vital Signs
Temp Pulse Resp BP Pulse Ox
97.8 F 68 18 159/105 100
07/11/23 23:06 07/11/23 23:06 07/11/23 23:06 07/11/23 23:06 07/11/23 23:06
I&O
07/11/23 07/12/23 07/13/23
06:59 06:59 06:59
Intake Total 2199 / 2199
Balance 2199 / 2199
[2023-07-12 08:15] LABS: Hematocrit 33.9 % (39.0-52.0); Hemoglobin 11.1 g/dL (13.0-18.0); Mean Corp Hgb Conc. 32.7 g/dL (33.0-37.0); Mean Corpuscular Hgb 29.2 pg (27.0-31.0); Mean Corpuscular Volume 89.2 fL (80.0-94.0); Mean Platelet Volume 11.5 fL (7.4-10.4); Platelet Count 181 10^3/uL (130-400); Red Cell Dist. Width 14.5 % (11.5-14.5); White Blood Cell Count 4.2 10^3/uL (4.8-10.8)
[2023-07-12 08:38] LABS: Blood Urea Nitrogen 22 mg/dl (9-20); Calcium 9.2 mg/dl (8.4-10.2); Carbon Dioxide 23 mmol/L (22-30); Chloride 109 mmol/L (98-107); Estimated Creatinine Clearance 66 ml/min; Glucose 110 mg/dl (70-99); Potassium 4.2 mmol/L (3.5-5.1); Sodium 139 mmol/L (135-145); eGFR 51.67
[2023-07-12] MEDS: PROGRAF 1.5 MG PO (08:57)
[2023-07-12] MEDS: MYFORTIC DELAYED REL. 540 MG PO (08:58)
[2023-07-12] MEDS: TRANDATE 400 MG PO (08:58)
--- NOTE | 2023-07-12 09:11 | W.PN.ID1 ---
Date of Service
Date of Service: July 12, 2023
Today's Communication
Can transition cefepime to cefuroxime 500mg po bid through 07/22/23.
Assessment / Plan
# E. coli UTI
# Reported fever
# KASHIF on CKD, resolved
# Renal transplant on tacrolimus, mycophenolate
- blood cx negative
-Ucx E. coli
- Can transition cefepime to cefuroxime 500mg po bid through 07/22/23.
#Additional Past Medical History:
PCKD s/p renal transplant 2014, on tacrolimus, mycophenolate
Bilateral nephrectomy
HTN
Afib
HFpEF
Mandible ORIF
left ankle ORIF x 2
Chief Complaint
-: UTI
Subjective / Review of Systems
Feels improved.
Vital Signs / Physical Exam
Vital Signs
Vital Signs
Temp Pulse Resp BP Pulse Ox
97.8 F 68 18 159/105 100
07/11/23 23:06 07/11/23 23:06 07/11/23 23:06 07/11/23 23:06 07/11/23 23:06
Physical Exam
Constitutional: No Acute Distress
Gastrointestinal: Soft, Non Tender and Non Distended
Extremities: Negative Edema
Neurological: AO x 3
Objective Data
Lab Data
Lab Results
07/12/23 07:27
07/12/23 07:27
Estimated Creat Clear 66 ml/min 07/12/23 07:27
Lactic Acid Cancelled 07/10/23 00:00
Total Bilirubin 3.2 mg/dl (0.2-1.3) H 07/09/23 19:59
AST 21 U/L (17-59) 07/09/23 19:59
ALT 18 U/L (0-50) 07/09/23 19:59
Alkaline Phosphatase 97 U/L (38-126) 07/09/23 19:59
Most recent labs reviewed.
Micro Results:
07/09/23 20:06 Urine Culture - Final
Urine Escherichia coli
07/09/23 19:59 Blood Culture - Preliminary
Blood/Venous No Growth in 48 hours- Final report to follow
07/09/23 19:59 Blood Culture - Preliminary
Blood/Venous No Growth in 48 hours- Final report to follow
Care Review
Plan reviewed with: Physician (Dr. Morel)
[2023-07-12] MEDS: CEFTIN 500 MG PO (10:13)
--- NOTE | 2023-07-12 11:11 | W.DCSUMMARY ---
Discharge Summary
Discharge Data
Date of Admission: 07/09/23
Date of Discharge: 07/12/23
-
Pending Results: Yes
Additional Pending Results:
tacrolimus level
Hospital Course
62-year-old male with history of renal transplant for polycystic kidney disease in 2014 presents with elevated creatinine, lightheadedness.� He was on antibiotics for the past 6 days for UTI.� Night prior to admission he felt lightheaded and had a
headache.� Saw Dr. Cortez with a fever 104.� His creatinine was also elevated to 2.[address] Myers, his registered nursing professor, ordered an ultrasound.� Acute kidney injury on CKD stage III, History of renal transplant due to polycystic kidney disease in
2015�at [facility]-living unrelated donor, History of nephrectomy, patient improved with hold Lasix, Cr improving, IV fluids completed. Ultrasound Renal Transplant appreciated no acute abn's. Home mycophenolate and tacrolimus were
continued. For UTI patient was empirically started on ceftriaxone, later transitioned to cefuroxime. Urine cultures returned positive for E. coli pansensitive, for which patient was de-escalated to Cefuroxime to continue through 07/21 as per ID.
Heart failure preserved ejection fraction-chronic, Lasix was held with KASHIF, resolving/resolved, resumed on discharge.� Follow up BMP with primary care provider in 1 week recommended. Medically stable, patient was discharged home with outpatient
follow up recommendations.
Discharge Plan
-
Patient Disposition: Home (Routine Discharge)
Discharge Diagnosis/Procedures: Urinary Tract Infection, Acute Kidney Injury resolving, history Heart Failure with preserved Ejection Fraction, paroxysmal Atrial Fibrillation
Condition: Good
Diet: Regular
Activity: As tolerated
Driving Restrictions: As prior to admission
Bathing Restrictions: None
Blood Work: Please repeat BMP with primary care provider and/or nephrology in 1 week of discharge to continue follow up resolving acute kidney injury Chronic Kidney Disease
Specialty Instructions: Weigh Daily- Call MD for wt gain/loss 3 lbs overnight/5 lbs in 1 week
Activity Restrictions/Additional Instructions:
Please follow up with primary care provider in 1 week of discharge, Nephrology in 1-2 weeks of discharge, and Infectious Disease in 2-4 weeks of discharge.
Cefuroxime has been prescribed for UTI to continue through 07/22/23 then stop.
Please take medications as prescribed/recommended and follow up with primary care provider and/or other healthcare provider involved in your care for refills and/or further adjustment to your medication regimen as necessary.
Instructions: Urinary Tract Infection, Adult (DC)
Referrals:
Leeanna Horn MD [Family Provider] - in one week
Cal Myers MD [Active] - in one to two weeks
Echo Mcwilliams MD [Active] - in two to four weeks (Infectious Disease physician)
Prescriptions:
New
cefuroxime axetil 500 mg Tablet
500 mg PO BID 11 Days Qty: 21 0RF
Rx Instructions:
Continue through 07/22/23 then stop
Continued
tacrolimus 1 MG capsule
1 mg PO BID
Patient Comments:
10/20/2021: TAKEN W/ 0.5MG = 1.5MG
tacrolimus 0.5 MG capsule
0.5 mg PO BID
mycophenolate sodium 180 MG tablet,delayed release (DR/EC)
540 mg PO BID
labetalol 200 MG tablet
400 mg PO BID Qty: 360 0RF
Xarelto 20 MG tablet
20 mg PO QPM Qty: 90 0RF
furosemide [Lasix] 20 MG tablet
40 mg PO DAILY
Discharge Orders:
Discharge Patient (As Directed); Ordered 07/12/23
Ordered By: Stacey Morel
Discharge Date and Time
Discharge Date/Time: 07/12/23 12:35
--- NOTE | 2023-07-12 12:41 | PTCARENOTE ---
Rn Flow senior accounting clerk- patient cleared for d/c. Instructions provided. Patient offered wheelchair but declined. Patient left floor ambulating with steady gait.
--- NOTE | 2023-07-12 16:19 | W.PN.NEPH.PH ---
Today's Communication / Plan
-
- d/c today
Assessment/Plan
-
Assessment
Living unrelated renal transplant 2014
CKD 3, baseline creatinine 1.6
ADPKD bilateral nephrectomy
Hypertension
Urinary tract infection
Plan
IVF stopped today
Cr improved to 1.5, bl 1.6
Follow BMP
tac level pending
transitioned to cefuroxime 500mg PO BID stop 07/21
transplant ultrasound wnl
patient encouraged to create a home blood pressure log at home
Plan for follow up with Dr. Myers in a few weeks as able
Discussed with patient
-
-
Date of Service: July 12, 2023
CC / HPI / ROS
-
Chief Complaint:
KASHIF in renal txp
History of Present Illness:
KASHIF improving from 2.5 to 1.5 with fluids
UTI tx ongoing
Review of Systems:
lightheadedness and dizziness improved
Labs
-
Labs:
WBC 4.2 10^3/uL (4.8-10.8) L 07/12/23 07:27
RBC 3.80 10^6/uL (4.70-6.10) L 07/12/23 07:27
Hgb 11.1 g/dL (13.0-18.0) L 07/12/23 07:27
Hct 33.9 % (39.0-52.0) L 07/12/23 07:27
Plt Count 181 10^3/uL (130-400) 07/12/23 07:27
Sodium 139 mmol/L (135-145) 07/12/23 07:27
Potassium 4.2 mmol/L (3.5-5.1) 07/12/23 07:27
Chloride 109 mmol/L (98-107) H 07/12/23 07:27
Carbon Dioxide 23 mmol/L (22-30) 07/12/23 07:27
BUN 22 mg/dl (9-20) H 07/12/23 07:27
Creatinine 1.5 mg/dL (0.7-1.3) H 07/12/23 07:27
eGFR 51.67 07/12/23 07:27
Glucose 110 mg/dl (70-99) H 07/12/23 07:27
Calcium 9.2 mg/dl (8.4-10.2) 07/12/23 07:27
Albumin 3.9 g/dl (3.5-5.0) 07/09/23 19:59
Physical Exam
-
Vital Signs:
Vital Signs
Temp Pulse Resp BP Pulse Ox
97.8 F 66 20 175/99 98
07/12/23 07:50 07/12/23 07:50 07/12/23 07:50 07/12/23 07:50 07/12/23 08:50
Cardiovascular:: Regular rate and rhythm
Respiratory:: Bilateral: CTA
Lung Excursion:: Normal
Abdomen:: Nontender and Soft
Bowel Sounds:: Normal
Extremity Edema:: None: Bilateral:
Stark Catheter: No
[2023-07-13 12:31] LABS: Tacrolimus (Prograft - FK506) 4.1 ng/mL
[2023-07-13 15:47] LABS: Tacrolimus (Prograft - FK506) 4.2 ng/mL
== END 2023-07-12 12:35 | disposition home or self-care (01) | DRG 699 ==
LOC: 4 WEST ACU 22:14
PROVIDERS: Clinical Nurse Specialist Family Health; ADMITTING PHYSICIAN Internal Medicine; ATTENDING PHYSICIAN Internal Medicine; CONSULT PHYSICIAN Internal Medicine Infectious Disease; EMERGENCY PHYSICIAN Emergency Medicine; FAMILY PHYSICIAN Family Medicine; OTHER PHYSICIAN Specialist
DX: T86.19 Other complication of kidney transplant (principal); D84.9 Immunodeficiency, unspecified; I13.0 Hypertensive heart and chronic kidney disease with heart failure and stage 1 through stage 4 chronic kidney disease, or unspecified chronic kidney disease; I50.32 Chronic diastolic (congestive) heart failure; N39.0 Urinary tract infection, site not specified; N17.9 Acute kidney failure, unspecified; N25.81 Secondary hyperparathyroidism of renal origin; Q61.2 Polycystic kidney, adult type; E87.1 Hypo-osmolality and hyponatremia; K64.9 Unspecified hemorrhoids; B96.20 Unspecified Escherichia coli [E. coli] as the cause of diseases classified elsewhere; E11.22 Type 2 diabetes mellitus with diabetic chronic kidney disease; N18.31 Chronic kidney disease, stage 3a; I48.0 Paroxysmal atrial fibrillation; Y83.0 Surgical operation with transplant of whole organ as the cause of abnormal reaction of the patient, or of later complication, without mention of misadventure at the time of the procedure; Z79.01 Long term (current) use of anticoagulants; Z79.69 Long term (current) use of other immunomodulators and immunosuppressants; Z88.0 Allergy status to penicillin; Z91.040 Latex allergy status; Z79.621 Long term (current) use of calcineurin inhibitor; Z90.5 Acquired absence of kidney; Z87.19 Personal history of other diseases of the digestive system
CPT/HCPCS: 76776; 80048; 80053; 80197; 81003; 81015; 83605; 85025; 85027; 87040; 87077; 87086; 87186; 96361; 96374; 99284; J2185